=== PATIENT | male | born 1950 | race Caucasian/White ===

== ENCOUNTER 2022-06-27 13:29 | Inpatient (IN) | payer OTHER, MEDICAID ==
[~2022-06-27] VITALS: Ht 167.6 cm; Wt 79.6 kg
[2022-06-27 13:30] VITALS: BP_SYST 124
[2022-06-27 14:56] LABS: BASOPHILS # (AUTO) 0.1 K/uL (0.0-0.2); BASOPHILS % (AUTO) 0.8 % (0.0-2.0); EOSINOPHILS # (AUTO) 0.3 K/uL (0.0-0.4); EOSINOPHILS % (AUTO) 3.5 % (0.0-4.0); HEMATOCRIT 30.1 % (36-54); HEMOGLOBIN 9.9 g/dL (14.0-18.0); LYMPHOCYTES # (AUTO) 0.8 K/uL (1.0-5.5); LYMPHOCYTES % (AUTO) 9.1 % (20.5-51.5); MEAN CORPUSCULAR HEMOGLOBIN 26 pg (27-31); MEAN CORPUSCULAR HGB CONC 33 % (32-36); MEAN CORPUSCULAR VOLUME 78 fL (79.0-98.0); MONOCYTES # (AUTO) 0.4 K/uL (0.0-1.0); NEUTROPHILS % (AUTO) 81.6 % (40.0-70.0); PLATELET COUNT (AUTO) 535 K/uL (130-430); RED BLOOD CELL COUNT(AUTO) 3.86 MIL/uL (4.2-6.2); RED CELL DISTRIBUTION WIDTH 17.8 % (9.0-15.0); WHITE BLOOD COUNT (AUTO) 8.6 K/uL (4.8-10.8)
[2022-06-27 15:20] LABS: ANION GAP 10 (5-15); CALCIUM 8.5 mg/dL (8.4-11.0); CHLORIDE 108 mmol/L (98-107); CREATININE 3.67 mg/dL (0.55-1.30); GLUCOSE 95 mg/dL (70-99); UREA NITROGEN, BLOOD 54 mg/dL (8-21)
[2022-06-27 15:25] LABS: ALANINE AMINOTRANSFERASE 10 U/L (12-78); AMYLASE 245 U/L (0-100); ASPARTATE AMINOTRANSFERASE 10 U/L (10-37); C-REACTIVE PROTEIN QUANT 0.4 mg/dL (0-0.5); LIPASE 600 U/L (73-393); TOTAL BILIRUBIN 0.2 mg/dL (0.0-1.0)
[2022-06-27] MEDS ORDERED: DONE10TA44 PO (18:26)
[2022-06-27] MEDS ORDERED: ERTA1VIA3 IJ (18:26)
[2022-06-27] MEDS ORDERED: CRAN450T9 PO (18:26)
[2022-06-27] MEDS ORDERED: DOCU-156 PO (18:26)
[2022-06-27] MEDS ORDERED: SUCR1TAB2 PO (18:26)
[2022-06-27] MEDS ORDERED: FERR-69 PO (18:26)
[2022-06-27] MEDS ORDERED: AMLO5TAB4 PO (18:26)
[2022-06-27] MEDS ORDERED: TAMS-11 PO (18:26)
[2022-06-27] MEDS ORDERED: ACET325T53 PO (18:26)
[2022-06-27] MEDS ORDERED: [UNRECOGNIZED DRUG - CODE] TP (18:26)
[2022-06-27] MEDS ORDERED: DUTA0.5C PO (18:26)
[2022-06-27 18:49] LABS: PROTHROMBIN TIME 10.2 SECS (9.5-12.5)
[2022-06-27 21:45] VITALS: BP_SYST 123
[2022-06-27] MEDS: LORazepam 2 MG/ML VIAL IVP PRN (23:55)
[2022-06-28] VITALS: BP_SYST 138
[2022-06-28 07:10] LABS: BASOPHILS # (AUTO) 0.1 K/uL (0.0-0.2); BASOPHILS % (AUTO) 0.9 % (0.0-2.0); EOSINOPHILS # (AUTO) 0.3 K/uL (0.0-0.4); HEMATOCRIT 28.8 % (36-54); HEMOGLOBIN 9.6 g/dL (14.0-18.0); LYMPHOCYTES # (AUTO) 0.7 K/uL (1.0-5.5); LYMPHOCYTES % (AUTO) 8.5 % (20.5-51.5); MEAN CORPUSCULAR HEMOGLOBIN 26 pg (27-31); MEAN CORPUSCULAR HGB CONC 33 % (32-36); MEAN CORPUSCULAR VOLUME 77 fL (79.0-98.0); MONOCYTES # (AUTO) 0.6 K/uL (0.0-1.0); MONOCYTES % (AUTO) 7.3 % (1.7-9.3); NEUTROPHILS # (AUTO) 6.5 K/uL (1.8-7.7); NEUTROPHILS % (AUTO) 79.3 % (40.0-70.0); PLATELET COUNT (AUTO) 507 K/uL (130-430); RED BLOOD CELL COUNT(AUTO) 3.73 MIL/uL (4.2-6.2); RED CELL DISTRIBUTION WIDTH 17.6 % (9.0-15.0); WHITE BLOOD COUNT (AUTO) 8.2 K/uL (4.8-10.8)
[2022-06-28 07:22] LABS: ALANINE AMINOTRANSFERASE 8 U/L (12-78); ALBUMIN 2.7 g/dL (3.4-4.8); ANION GAP 13 (5-15); ASPARTATE AMINOTRANSFERASE 12 U/L (10-37); CALCIUM 8.3 mg/dL (8.4-11.0); CHLORIDE 112 mmol/L (98-107); CREATININE 3.34 mg/dL (0.55-1.30); GLUCOSE 98 mg/dL (70-99); TOTAL BILIRUBIN 0.2 mg/dL (0.0-1.0); UREA NITROGEN, BLOOD 53 mg/dL (8-21)
[2022-06-28 07:54] VITALS: BP_SYST 131
[2022-06-28] MEDS: TAMSULOSIN HCL 0.4 MG CAP PO SCH (08:56)
[2022-06-28 12:00] VITALS: BP_SYST 111
[2022-06-28 15:00] VITALS: BP_SYST 128
[2022-06-28 20:00] VITALS: BP_SYST 124
[2022-06-28] MEDS: LORazepam 2 MG/ML VIAL IVP PRN (21:33)
[2022-06-29] VITALS: BP_SYST 136
[2022-06-29 07:07] LABS: % FREE PSA 12.4 % (.); FREE PSA 0.36 ng/mL; PROSTATE SPECIFIC AG TOTAL 2.9 ng/mL (0.0-4.0)
[2022-06-29 08:20] VITALS: BP_SYST 99
[2022-06-29] MEDS: TAMSULOSIN HCL 0.4 MG CAP PO SCH (09:10)
[2022-06-29 11:50] VITALS: BP_SYST 122; BP_SYST 136
[2022-06-29] MEDS: LORazepam 2 MG/ML VIAL IVP PRN ×2 (15:43→21:30)
[2022-06-29] MEDS ORDERED: FINASTERIDE 5 MG TABLET (PROSCAR) PO ONE (16:45)
[2022-06-29 16:53] VITALS: BP_SYST 146; BP_SYST 151
[2022-06-29] MEDS: LIDOCAINE JELLY 5 ML TUBE MM ONE (17:30)
[2022-06-30 00:53] VITALS: BP_SYST 133
[2022-06-30] MEDS: LORazepam 2 MG/ML VIAL IVP PRN ×2 (03:32→20:22)
[2022-06-30] MEDS: TAMSULOSIN HCL 0.4 MG CAP PO SCH (10:05)
[2022-06-30] MEDS: FINASTERIDE 5 MG TABLET (PROSCAR) PO SCH (10:06)
[2022-06-30 12:00] VITALS: BP_SYST 156
[2022-06-30 16:00] VITALS: BP_SYST 141
[2022-06-30 19:40] VITALS: BP_SYST 145
[2022-07-01] VITALS: BP_SYST 148
[2022-07-01 08:06] LABS: % FREE PSA 11.7 % (.); FREE PSA 0.27 ng/mL; PROSTATE SPECIFIC AG TOTAL 2.3 ng/mL (0.0-4.0)
[2022-07-01] MEDS: LORazepam 2 MG/ML VIAL IVP PRN ×2 (08:48→20:31)
[2022-07-01 09:03] LABS: BASOPHILS # (AUTO) 0.1 K/uL (0.0-0.2); BASOPHILS % (AUTO) 0.5 % (0.0-2.0); EOSINOPHILS # (AUTO) 0.3 K/uL (0.0-0.4); EOSINOPHILS % (AUTO) 2.2 % (0.0-4.0); HEMATOCRIT 32.5 % (36-54); HEMOGLOBIN 10.5 g/dL (14.0-18.0); LYMPHOCYTES # (AUTO) 0.8 K/uL (1.0-5.5); LYMPHOCYTES % (AUTO) 6.2 % (20.5-51.5); MEAN CORPUSCULAR HEMOGLOBIN 25 pg (27-31); MEAN CORPUSCULAR HGB CONC 32 % (32-36); MEAN CORPUSCULAR VOLUME 78 fL (79.0-98.0); MONOCYTES # (AUTO) 0.7 K/uL (0.0-1.0); MONOCYTES % (AUTO) 5.8 % (1.7-9.3); NEUTROPHILS # (AUTO) 10.6 K/uL (1.8-7.7); NEUTROPHILS % (AUTO) 85.3 % (40.0-70.0); PLATELET COUNT (AUTO) 449 K/uL (130-430); RED BLOOD CELL COUNT(AUTO) 4.16 MIL/uL (4.2-6.2); RED CELL DISTRIBUTION WIDTH 17.5 % (9.0-15.0); WHITE BLOOD COUNT (AUTO) 12.4 K/uL (4.8-10.8)
[2022-07-01 09:29] LABS: ANION GAP 11 (5-15); ASPARTATE AMINOTRANSFERASE 11 U/L (10-37); CALCIUM 9.4 mg/dL (8.4-11.0); CHLORIDE 110 mmol/L (98-107); CREATININE 3.47 mg/dL (0.55-1.30); GLUCOSE 95 mg/dL (70-99); TOTAL BILIRUBIN 0.3 mg/dL (0.0-1.0); UREA NITROGEN, BLOOD 51 mg/dL (8-21)
[2022-07-01 09:44] LABS: ALANINE AMINOTRANSFERASE 5 U/L (12-78)
[2022-07-01 12:42] VITALS: BP_SYST 111
[2022-07-01] MEDS: FINASTERIDE 5 MG TABLET (PROSCAR) PO SCH (15:19)
[2022-07-01] MEDS: TAMSULOSIN HCL 0.4 MG CAP PO SCH (15:19)
[2022-07-01 16:29] VITALS: BP_SYST 123
[2022-07-01 19:45] VITALS: BP_SYST 135
[2022-07-02] VITALS (7 sets, daily range): BP systolic 112–134
[2022-07-02] MEDS: LORazepam 2 MG/ML VIAL IVP PRN ×2 (03:43→21:44)
[2022-07-02 06:30] LABS: ANION GAP 9 (5-15); CALCIUM 8.7 mg/dL (8.4-11.0); CHLORIDE 111 mmol/L (98-107); CREATININE 3.51 mg/dL (0.55-1.30); GLUCOSE 101 mg/dL (70-99); UREA NITROGEN, BLOOD 53 mg/dL (8-21)
[2022-07-02 07:27] LABS: PROTHROMBIN TIME 10.3 SECS (9.5-12.5)
[2022-07-02] MEDS ORDERED: METOCLOPRAMIDE HCL 10 MG/2 ML VIAL IVP PRN (08:00)
[2022-07-02] MEDS ORDERED: MORPHINE 4 MG INJ. 4 MG/ML VIAL IVP PRN (08:00)
[2022-07-02] MEDS ORDERED: KETOROLAC TROMETHAMINE 30 MG VIAL IVP PRN (08:00)
[2022-07-02] MEDS ORDERED: LORazepam 2 MG/ML VIAL IVP ONE (08:00)
[2022-07-02] MEDS ORDERED: MIDAZOLAM HCL 5 MG/5 ML VIAL IVP PRN (08:00)
[2022-07-02 08:17] LABS: BASOPHILS % (AUTO) 0.4 % (0.0-2.0); EOSINOPHILS # (AUTO) 0.3 K/uL (0.0-0.4); EOSINOPHILS % (AUTO) 2.1 % (0.0-4.0); HEMATOCRIT 27.9 % (36-54); HEMOGLOBIN 9.3 g/dL (14.0-18.0); LYMPHOCYTES # (AUTO) 0.7 K/uL (1.0-5.5); LYMPHOCYTES % (AUTO) 5.2 % (20.5-51.5); MEAN CORPUSCULAR HEMOGLOBIN 26 pg (27-31); MEAN CORPUSCULAR HGB CONC 33 % (32-36); MEAN CORPUSCULAR VOLUME 78 fL (79.0-98.0); MONOCYTES # (AUTO) 1.1 K/uL (0.0-1.0); MONOCYTES % (AUTO) 8.3 % (1.7-9.3); NEUTROPHILS # (AUTO) 10.7 K/uL (1.8-7.7); PLATELET COUNT (AUTO) 374 K/uL (130-430); RED CELL DISTRIBUTION WIDTH 17.9 % (9.0-15.0); WHITE BLOOD COUNT (AUTO) 12.7 K/uL (4.8-10.8)
[2022-07-02] MEDS ORDERED: CEFAZOLIN 1 GM IVPB PREMIX 50 ML IV ONE (08:19)
[2022-07-02] MEDS ORDERED: DEXAMETHASONE SOD PHOSPHATE 4 MG/ML VIAL ONE (08:19)
[2022-07-02] MEDS ORDERED: ONDANSETRON HCL 4 MG/2 ML VIAL ONE (08:19)
[2022-07-02] MEDS ORDERED: PROPOFOL 200MG/ 20ML VIAL (DIPRIVAN) IV ONE (08:19)
[2022-07-02] MEDS ORDERED: SEVOFLURANE 15 MIN GAS INH ONE (08:19)
[2022-07-02] MEDS ORDERED: NS IRRIG SOLN 5000 ML IR ONE (08:19)
[2022-07-02] MEDS ORDERED: NS IRRIG SOLN 1000 ML IR ONE (08:19)
[2022-07-02] MEDS ORDERED: NS 1000 ML IV.SOLN IV ONE (08:19)
[2022-07-02] MEDS: FINASTERIDE 5 MG TABLET (PROSCAR) PO SCH (09:22)
[2022-07-02] MEDS: TAMSULOSIN HCL 0.4 MG CAP PO SCH (09:23)
[2022-07-03 04:21] LABS: BILIRUBIN,URINE NEGATIVE (NEGATIVE); BLOOD, URINE 3+ (NEGATIVE); CLARITY/URINE SL CLOUDY (CLEAR); COLOR,URINE YELLOW (YELLOW); GLUCOSE,URINE NEGATIVE (NEGATIVE); KETONES,URINE NEGATIVE (NEGATIVE); LEUKOCYTE ESTERASE ,URINE 3+ (NEGATIVE); NITRITE, URINE NEGATIVE (NEGATIVE); PROTEIN URINE 2+ (NEGATIVE); UROBILINOGEN,URINE 0.2 (0.2-1.0)
[2022-07-03 04:48] LABS: BACTERIA,URINE FEW /HPF (None Seen); MUCUS,URINE 1+ /LPF (None Seen); RBC,URINE 20-50 /HPF (0-3); WBC,URINE 20-50 /HPF (0-3)
[2022-07-03 07:02] LABS: ANION GAP 9 (5-15); CALCIUM 8.4 mg/dL (8.4-11.0); CHLORIDE 110 mmol/L (98-107); CREATININE 3.48 mg/dL (0.55-1.30); GLUCOSE 86 mg/dL (70-99); UREA NITROGEN, BLOOD 56 mg/dL (8-21)
[2022-07-03 07:12] LABS: BASOPHILS # (AUTO) 0.1 K/uL (0.0-0.2); BASOPHILS % (AUTO) 0.6 % (0.0-2.0); EOSINOPHILS # (AUTO) 0.3 K/uL (0.0-0.4); EOSINOPHILS % (AUTO) 2.8 % (0.0-4.0); HEMATOCRIT 24.7 % (36-54); HEMOGLOBIN 8.2 g/dL (14.0-18.0); LYMPHOCYTES # (AUTO) 0.9 K/uL (1.0-5.5); LYMPHOCYTES % (AUTO) 9.8 % (20.5-51.5); MEAN CORPUSCULAR HEMOGLOBIN 26 pg (27-31); MEAN CORPUSCULAR HGB CONC 33 % (32-36); MEAN CORPUSCULAR VOLUME 78 fL (79.0-98.0); MONOCYTES # (AUTO) 0.8 K/uL (0.0-1.0); MONOCYTES % (AUTO) 8.3 % (1.7-9.3); NEUTROPHILS # (AUTO) 7.5 K/uL (1.8-7.7); NEUTROPHILS % (AUTO) 78.5 % (40.0-70.0); PLATELET COUNT (AUTO) 353 K/uL (130-430); RED BLOOD CELL COUNT(AUTO) 3.16 MIL/uL (4.2-6.2); RED CELL DISTRIBUTION WIDTH 17.8 % (9.0-15.0); WHITE BLOOD COUNT (AUTO) 9.6 K/uL (4.8-10.8)
[2022-07-03] MEDS: FINASTERIDE 5 MG TABLET (PROSCAR) PO SCH (09:00)
[2022-07-03] MEDS: TAMSULOSIN HCL 0.4 MG CAP PO SCH (09:00)
[2022-07-03] MEDS: LORazepam 2 MG/ML VIAL IVP PRN ×2 (11:41→17:54)
[2022-07-03 12:00] VITALS: BP_SYST 131
[2022-07-03 16:00] VITALS: BP_SYST 130
[2022-07-03 20:06] VITALS: BP_SYST 141
[2022-07-04] VITALS: BP_SYST 108
[2022-07-04] MEDS: LORazepam 2 MG/ML VIAL IVP PRN ×2 (02:18→12:26)
[2022-07-04 12:00] VITALS: BP_SYST 114
[2022-07-04] MEDS: TAMSULOSIN HCL 0.4 MG CAP PO SCH (12:20)
[2022-07-04] MEDS: FINASTERIDE 5 MG TABLET (PROSCAR) PO SCH (12:40)
[2022-07-04 16:00] VITALS: BP_SYST 126
[2022-07-04 20:00] VITALS: BP_SYST 50
[2022-07-04 21:42] LABS: ANION GAP 9 (5-15); CALCIUM 8.1 mg/dL (8.4-11.0); CHLORIDE 110 mmol/L (98-107); CREATININE 2.95 mg/dL (0.55-1.30); GLUCOSE 100 mg/dL (70-99); UREA NITROGEN, BLOOD 46 mg/dL (8-21)
[2022-07-05 01:15] VITALS: BP_SYST 158
[2022-07-05] MEDS: TAMSULOSIN HCL 0.4 MG CAP PO SCH (11:14)
[2022-07-05] MEDS: FINASTERIDE 5 MG TABLET (PROSCAR) PO SCH (11:16)
[2022-07-05] MEDS: LORazepam 2 MG/ML VIAL IVP PRN ×3 (11:20→23:04)
[2022-07-05 11:51] VITALS: BP_SYST 121
[2022-07-05] MEDS: MEROPENEM 500 MG in NS 50 ML IV SCH ×2 (14:03→23:07)
[2022-07-05 16:52] VITALS: BP_SYST 123
[2022-07-05 20:00] VITALS: BP_SYST 126
[2022-07-06 02:13] VITALS: BP_SYST 135
[2022-07-06] MEDS: MEROPENEM 500 MG in NS 50 ML IV SCH ×2 (06:23→13:01)
[2022-07-06 07:03] LABS: BASOPHILS # (AUTO) 0.1 K/uL (0.0-0.2); EOSINOPHILS # (AUTO) 0.4 K/uL (0.0-0.4); EOSINOPHILS % (AUTO) 6.1 % (0.0-4.0); HEMATOCRIT 28.9 % (36-54); HEMOGLOBIN 9.5 g/dL (14.0-18.0); LYMPHOCYTES # (AUTO) 0.9 K/uL (1.0-5.5); LYMPHOCYTES % (AUTO) 12.9 % (20.5-51.5); MEAN CORPUSCULAR HEMOGLOBIN 26 pg (27-31); MEAN CORPUSCULAR HGB CONC 33 % (32-36); MEAN CORPUSCULAR VOLUME 78 fL (79.0-98.0); MONOCYTES # (AUTO) 0.7 K/uL (0.0-1.0); MONOCYTES % (AUTO) 10.6 % (1.7-9.3); NEUTROPHILS # (AUTO) 4.9 K/uL (1.8-7.7); NEUTROPHILS % (AUTO) 69.4 % (40.0-70.0); PLATELET COUNT (AUTO) 410 K/uL (130-430); RED BLOOD CELL COUNT(AUTO) 3.72 MIL/uL (4.2-6.2); RED CELL DISTRIBUTION WIDTH 17.7 % (9.0-15.0)
[2022-07-06 08:02] LABS: ALANINE AMINOTRANSFERASE 7 U/L (12-78); ALBUMIN 2.7 g/dL (3.4-4.8); ANION GAP 7 (5-15); ASPARTATE AMINOTRANSFERASE 12 U/L (10-37); CALCIUM 8.7 mg/dL (8.4-11.0); CHLORIDE 110 mmol/L (98-107); CREATININE 2.95 mg/dL (0.55-1.30); GLUCOSE 96 mg/dL (70-99); TOTAL BILIRUBIN 0.1 mg/dL (0.0-1.0); UREA NITROGEN, BLOOD 43 mg/dL (8-21)
[2022-07-06] MEDS: TAMSULOSIN HCL 0.4 MG CAP PO SCH (09:21)
[2022-07-06] MEDS: FINASTERIDE 5 MG TABLET (PROSCAR) PO SCH (09:22)
[2022-07-06 12:00] VITALS: BP_SYST 117
[2022-07-06 15:58] VITALS: BP_SYST 115
[2022-07-06 16:00] VITALS: BP_SYST 115
== END 2022-07-06 16:30 | DRG 698 ==
LOC: SED 13:29 → STU 18:03 → SMU 06-30 19:12
PROVIDERS: ADMIT Internal Medicine; ATTEND Internal Medicine
PROC: 0T9B80Z Drainage of Bladder with Drainage Device, Via Natural or Artificial Opening Endoscopic (ICD-10-PCS; 2022-07-02)
PROC: 0T7D8ZZ Dilation of Urethra, Via Natural or Artificial Opening Endoscopic (ICD-10-PCS; principal; 2022-07-02 07:00)
DX: T83.518A Infection and inflammatory reaction due to other urinary catheter, initial encounter (principal); E43 Unspecified severe protein-calorie malnutrition; N17.0 Acute kidney failure with tubular necrosis; I13.0 Hypertensive heart and chronic kidney disease with heart failure and stage 1 through stage 4 chronic kidney disease, or unspecified chronic kidney disease; N13.6 Pyonephrosis; N40.1 Benign prostatic hyperplasia with lower urinary tract symptoms; N13.9 Obstructive and reflux uropathy, unspecified; Z20.822 Contact with and (suspected) exposure to COVID-19; K40.90 Unilateral inguinal hernia, without obstruction or gangrene, not specified as recurrent; N18.9 Chronic kidney disease, unspecified; I50.9 Heart failure, unspecified; F03.90 Unspecified dementia, unspecified severity, without behavioral disturbance, psychotic disturbance, mood disturbance, and anxiety; R74.8 Abnormal levels of other serum enzymes; B96.20 Unspecified Escherichia coli [E. coli] as the cause of diseases classified elsewhere; Z68.28 Body mass index [BMI] 28.0-28.9, adult
CPT/HCPCS: 36415; 71045; 76376; 76770; 80048; 80053; 81000; 82150; 83605; 83690; 84153; 85025; 85610-TC; 85730-TC; 86140; 86886; 86900; 86901; 87081; 87086; 93005; 94010; 99285; C1758; C1769; G0378; J0690; J1100; J2060; J2185; J2405; J2704; J7030; J7040